=== PATIENT | male | born 1945 | race Caucasian/White ===

== ENCOUNTER → 2017-12-06 | Outpatient (CLI) | payer MEDICARE, OTHER ==
[~2017-12-06] MED LIST: ASPI-757 PO; ONDA4TAB97 PO; OXYC-865 PO
[2017-12-06 10:46] LABS: PLATELET COUNT, AUTOMATED 297 K/uL (150-450)
[2017-12-06 11:04] LABS: LDL CHOLESTEROL 116 mg/dl
== END ==
LOC: LAB 10:26
PROVIDERS: ATTEND Nurse Practitioner Family
DX: I10 Essential (primary) hypertension (principal); E78.5 Hyperlipidemia, unspecified; R97.20 Elevated prostate specific antigen [PSA]
CPT/HCPCS: 36415; 82040; 82247; 82310; 82374; 82435; 82465; 82565; 82947; 83718; 84075; 84132; 84153; 84155; 84295; 84450; 84460; 84478; 84520; 85025

== ENCOUNTER → 2018-03-08 | Outpatient (CLI) | payer MEDICARE, OTHER | LOC: LAB 08:33 | DX: E29.1 Testicular hypofunction (principal) | CPT/HCPCS: 36415; 84270; 84403 ==